=== PATIENT | male | born 2000 | race Hispanic/Latino ===

== ENCOUNTER 2025-08-11 07:12 | Emergency (ER) | payer OTHER ==
[~2025-08-11] VITALS: Ht 172.7 cm; Wt 65.9 kg
[2025-08-11 10:53] VITALS: BP 138/72; TEMP 98.6; O2SAT 100
== END 2025-08-11 11:17 | disposition home or self-care (01) ==
LOC: M ED 07:12
DX: S82.201A Unspecified fracture of shaft of right tibia, initial encounter for closed fracture (principal); X50.0XXA Overexertion from strenuous movement or load, initial encounter; Z91.013 Allergy to seafood; Z91.09 Other allergy status, other than to drugs and biological substances; Y92.84 Military training ground as the place of occurrence of the external cause; Y93.89 Activity, other specified; Y99.1 Military activity